=== PATIENT | male | born 1950 ===

== ENCOUNTER 2019-01-09 07:43 | Outpatient (CLI) | payer OTHER ==
[~2019-01-09] VITALS: Ht 152.4 cm; Wt 62.6 kg
== END 2019-01-09 08:00 | disposition home or self-care (01) ==
LOC: OFIC 805 07:43
DX: H70.11 Chronic mastoiditis, right ear (principal); H90.71 Mixed conductive and sensorineural hearing loss, unilateral, right ear, with unrestricted hearing on the contralateral side; H90.A12 Conductive hearing loss, unilateral, left ear with restricted hearing on the contralateral side; H92.01 Otalgia, right ear

== ENCOUNTER → 2019-04-10 | Outpatient (CLI) | payer OTHER ==
[~2019-04-10] VITALS: Ht 152.4 cm; Wt 62.6 kg
== END | disposition home or self-care (01) ==
LOC: OFIC 805 07:51
DX: H92.01 Otalgia, right ear (principal); H90.A12 Conductive hearing loss, unilateral, left ear with restricted hearing on the contralateral side; H90.A31 Mixed conductive and sensorineural hearing loss, unilateral, right ear with restricted hearing on the contralateral side; H70.11 Chronic mastoiditis, right ear; J31.0 Chronic rhinitis